=== PATIENT | male | born 1970 | race Caucasian/White ===

== ENCOUNTER 2020-04-09 08:55 | Day surgery (SDC) | payer BC ==
[~2020-04-09] VITALS: Ht 180.3 cm; Wt 66.7 kg
[2020-04-09] MEDS ORDERED: HYDROCODON-ACE1 EA10 PO (11:44)
[2020-04-09] MEDS ORDERED: DICLOFENAC SODI75 MG PO (11:44)
--- NOTE | 2020-04-09 12:46 | NUR ---
1140: PATIENT BACK IN DAY SURGERY ROOM DIRECTLY FROM OR. DENIES PAIN. VS CHECKED. C/O NUMBNESS IN RIGHT FINGERS. NERVE BLOCK PLACED PRE-OP. ABLE TO SLIGHTLY MOVE RIGHT FINGERS. CAP REFILL TO RIGHT FINGERS WNL. RIGHT ARM ELEVATED ON PILLOW. PATIENT DECLINED SCDs AT THIS TIME. ICE WATER GIVEN TO PATIENT. AT BEDSIDE. CALL LIGHT WITHIN REACH. 1210: IV DC'D WNL. TIP INTACT. DRESSING APPLIED. PATIENT GETTING DRESSED. 1227: DISCHARGE INSTRUCTIONS GIVEN TO PATIENT AND . ICE PACK GIVEN TO PATIENT FOR RIGHT HAND. OFFERED SLING FOR RIGHT ARM. PATIENT DECLINED SLING. PATIENT DISCHARGED TO HOME AMBULATORY WITH . DECLINED WHEELCHAIR.
--- NOTE | 2020-04-10 10:17 | OR ---
[facility] [address] [place], [place] [address] Signed DATE OF OPERATION: 04/09/2020 SURGEON: Fernando Rivas MD PREOPERATIVE DIAGNOSIS: Displaced right 4th metacarpal fracture. POSTOPERATIVE DIAGNOSIS: Displaced right 4th metacarpal fracture. PROCEDURE PERFORMED: Open reduction and internal fixation of right 4th metacarpal. BUDDHIST MONK: MALIKA Saenz. ANESTHESIA: Block. TOURNIQUET TIME: 45 minutes. IMPLANTS: A 1.5 mm 7-hole plate with 7 screws. BRIEF HISTORY: Han is a 49-year-old gentleman with history of an injury to his right 4th metacarpal when he was attempting to drill a piece of PVC. Radiographs showed a displaced spiral fracture of the midshaft metacarpal with displacement and foreshortening. Risks and benefits of operative treatment were discussed with him and he elected to proceed. DESCRIPTION OF PROCEDURE: Once consent was obtained, he was taken to the operating room. After adequate anesthesia, he was placed on operating room table. All downside pressure points were well padded. The arm was placed in well-padded proximal arm tourniquet and prepped and draped in a standard sterile fashion. The arm was exsanguinated using Esmarch bandage. Tourniquet inflated to 200 mmHg. Standard dorsal approach was centered over the fracture, taken through skin and subcutaneous tissue. The extensor tendons were identified, retracted and protected. The periosteum was incised longitudinally and elevated off the bone medially and laterally. This allowed visualization of the Electronically Signed By: FERNANDO RIVAS MD 04/10/20 1017 PATIENT NAME: HAN TOBAR OPERATIVE REPORT DATE OF : 74 REPORT #: [id number] PHYSICIAN: FERNANDO RIVAS MD PCP: OMEGA BURROUGHS MD REPORT IS CONFIDENTIAL AND NOT TO BE RELEASED WITHOUT AUTHORIZATION [facility] [address] [place], [place] [address] Signed fracture, which was cleared of callus and reduced and held with a pin clamp. The plate was then fashioned to fit the dorsal lateral aspect of the metacarpal oblique to the fracture. Two screws were then placed through the plate and lagging the fracture together. The clamp was then removed. Radiograph showed good reduction and screw lengths. The remaining screw holes were drilled and appropriate length screws were placed. The final radiograph showed anatomic reduction and good screw lengths. The wound was copiously irrigated with antibiotic solution. Periosteum was closed underneath the tendons using 3-0 Monocryl, subcutaneous tissue with 3-0 Monocryl, and skin with 3-0 Monocryl and Steri-Strips. The wound was dressed with sterile gauze, sterile cast padding, and an ulnar gutter splint. He tolerated the procedure well. All sponge, needle, and instrument counts were correct. Fernando Rivas MD BA/TRISH /[id number] Copies: ~ Electronically Signed By: FERNANDO RIVAS MD 04/10/20 1017 PATIENT NAME: HAN TOBAR OPERATIVE REPORT DATE OF : 74 REPORT #: [id number] PHYSICIAN: FERNANDO RIVAS MD PCP: OMEGA BURROUGHS MD REPORT IS CONFIDENTIAL AND NOT TO BE RELEASED WITHOUT AUTHORIZATION
== END 2020-04-09 12:27 | disposition home or self-care (01) ==
LOC: DS 08:55
PROVIDERS: Specialist
PROC: 0PSP04Z Reposition Right Metacarpal with Internal Fixation Device, Open Approach (ICD-10-PCS; principal; 2020-04-09 11:15)
DX: S62.324A Displaced fracture of shaft of fourth metacarpal bone, right hand, initial encounter for closed fracture (principal); X50.1XXA Overexertion from prolonged static or awkward postures, initial encounter
CPT/HCPCS: 01830; 64450; 73130; 76942; J0690; J1100; J1885; J2250; J2405; J2704; J2765; J2795; J3010; J7121